=== PATIENT | female | born 1945 | race African-American/Black ===

== ENCOUNTER 2019-08-28 15:27 | Emergency (ER) | payer MEDICARE, OTHER ==
[~2019-08-28] VITALS: Ht 172.7 cm; Wt 100.0 kg
[2019-08-28 20:29] VITALS: BP 103/56
== END 2019-08-28 21:14 | disposition home or self-care (01) ==
LOC: ER 15:27
DX: R07.81 Pleurodynia (principal); E11.9 Type 2 diabetes mellitus without complications; W01.0XXA Fall on same level from slipping, tripping and stumbling without subsequent striking against object, initial encounter; Y93.89 Activity, other specified; Y92.89 Other specified places as the place of occurrence of the external cause; Y99.8 Other external cause status
CPT/HCPCS: 71101; 99283

== ENCOUNTER 2022-06-27 09:29 | Emergency (ER) | payer OTHER ==
[~2022-06-27] VITALS: Ht 175.3 cm; Wt 101.0 kg
[2022-06-27] MEDS ORDERED: ACET-2708 PO (11:52)
[2022-06-27] MEDS ORDERED: BO1 TP (11:52)
[2022-06-27] MEDS ORDERED: DOXY-326 PO (11:52)
[2022-06-27 12:32] VITALS: BP 126/75
== END 2022-06-27 12:33 | disposition home or self-care (01) ==
LOC: ER 09:29
DX: L98.418 Non-pressure chronic ulcer of buttock with other specified severity (principal); L03.317 Cellulitis of buttock; E11.65 Type 2 diabetes mellitus with hyperglycemia
CPT/HCPCS: 82962; 99283

== ENCOUNTER 2022-07-01 08:10 | Emergency (ER) | payer OTHER ==
[~2022-07-01] VITALS: Ht 175.3 cm; Wt 100.0 kg
[~2022-07-01 08:10] MED LIST: ACET-2708 PO; BO1 TP; DOXY-326 PO
[2022-07-01 08:23] VITALS: BP 142/82
== END 2022-07-01 09:09 | disposition home or self-care (01) ==
LOC: ER 08:10
DX: L98.419 Non-pressure chronic ulcer of buttock with unspecified severity (principal)
CPT/HCPCS: 82962; 99281

== ENCOUNTER 2022-08-06 06:42 | Emergency (ER) | payer OTHER ==
[~2022-08-06] VITALS: Ht 172.7 cm; Wt 105.0 kg
[2022-08-06 11:36] VITALS: BP 136/83
== END 2022-08-06 11:37 | disposition home or self-care (01) ==
LOC: ER 06:42
DX: B34.9 Viral infection, unspecified (principal); E11.9 Type 2 diabetes mellitus without complications; E89.0 Postprocedural hypothyroidism; Z20.822 Contact with and (suspected) exposure to COVID-19
CPT/HCPCS: 87426; 87804; 99283; C9803

== ENCOUNTER 2022-11-12 14:46 | Emergency (ER) | payer OTHER ==
[~2022-11-12] VITALS: Ht 175.3 cm; Wt 100.0 kg
[~2022-11-12 14:46] MED LIST changes: -DOXY-326 PO; +DOXY-456 PO
[2022-11-12 14:58] VITALS: BP 132/79
[2022-11-12] MEDS ORDERED: P20 MT (16:47)
== END 2022-11-12 16:58 | disposition home or self-care (01) ==
LOC: ER 14:46
DX: M54.2 Cervicalgia (principal); R21 Rash and other nonspecific skin eruption; E11.9 Type 2 diabetes mellitus without complications
CPT/HCPCS: 99281

== ENCOUNTER 2023-05-24 07:25 | Emergency (ER) | payer OTHER ==
[~2023-05-24] VITALS: Ht 175.3 cm; Wt 100.0 kg
[~2023-05-24 07:25] MED LIST changes: +P20 MT
[2023-05-24 07:34] VITALS: O2SAT 99
[2023-05-24] MEDS ORDERED: SULF1TAB48 MT (09:00)
[2023-05-24 09:06] VITALS: BP 137/86; PULSE 77; RESP 18; TEMP 98.7
== END 2023-05-24 09:08 | disposition home or self-care (01) ==
LOC: ER 08:24
DX: L73.9 Follicular disorder, unspecified (principal); R22.0 Localized swelling, mass and lump, head
CPT/HCPCS: 99283

== ENCOUNTER 2023-11-16 12:42 | Emergency (ER) | payer OTHER ==
[~2023-11-16] VITALS: Ht 175.3 cm; Wt 91.0 kg
[~2023-11-16 12:42] MED LIST changes: +SULF1TAB48 MT
[2023-11-16 12:51] VITALS: TEMP 97.9; O2SAT 99
[2023-11-16] MEDS ORDERED: IBUP-2029 MT (15:04)
[2023-11-16] MEDS ORDERED: METH-653 MT (15:04)
[2023-11-16] MEDS: KETOROLAC 30MG/ML VIAL IM ONE (15:41)
[2023-11-16] MEDS: METHOCARBAMOL 500MG TABLET PO ONE (15:47)
[2023-11-16 15:54] VITALS: BP 128/77; PULSE 80; RESP 12
== END 2023-11-16 15:54 | disposition home or self-care (01) ==
LOC: ER 12:42
DX: S33.5XXA Sprain of ligaments of lumbar spine, initial encounter (principal); E11.9 Type 2 diabetes mellitus without complications; Z79.899 Other long term (current) drug therapy; V49.49XA Driver injured in collision with other motor vehicles in traffic accident, initial encounter; Y93.89 Activity, other specified; Y92.89 Other specified places as the place of occurrence of the external cause; Y99.8 Other external cause status
CPT/HCPCS: 99284; 72100; 73562; 96372; J1885

== ENCOUNTER 2024-01-24 12:31 | Emergency (ER) | payer OTHER ==
[~2024-01-24] VITALS: Ht 170.2 cm; Wt 83.0 kg
[~2024-01-24 12:31] MED LIST changes: +IBUP-2029 MT; +METH-653 MT
[2024-01-24 12:34] VITALS: TEMP 98; O2SAT 96
[2024-01-24] MEDS ORDERED: KETOROLAC 60MG/2ML VIAL IM ONE (16:00)
[2024-01-24 16:16] LABS: EOSINOPHILS % 1.1 % (0.0-5.0); HEMATOCRIT. 41.9 % (36.0-48.0); HEMOGLOBIN. 14.7 g/dL (12.0-16.0); LYMPHOCYTES % 40.1 % (20.0-50.0); MEAN CORPUSCULAR HEMOGLOBIN 32.5 pg (28.0-32.0); MEAN CORPUSCULAR HGB CONC 35.1 g/dL (31.0-37.0); MEAN CORPUSCULAR VOLUME 92.6 fL (81.0-99.0); MEAN PLATELET VOLUME 7.5 fl (7.4-10.4); MONOCYTES % 5.2 % (2.0-8.0); NEUTROPHILS % 52.6 % (40.0-76.0); PLATELET 299 x1000/uL (130-400); RED BLOOD CELL COUNT 4.52 mill/uL (4.2-5.4); RED CELL DISTRIBUTION WIDTH 12.4 % (11.6-14.6); WHITE BLOOD COUNT 7.1 x1000/uL (4.5-11.0)
[2024-01-24 16:22] LABS: CHLORIDE 108 mEq/L (98-107); POTASSIUM 3.6 mEq/L (3.5-5.1); SODIUM 142 mEq/L (136-145)
[2024-01-24 16:23] LABS: CALCIUM 10.6 mg/dL (8.7-10.4); CARBON DIOXIDE 28 mEq/L (21-32)
[2024-01-24 16:28] LABS: CREATININE 0.8 mg/dL (0.6-1.0); GLUCOSE 131 mg/dL (70-105); UREA NITROGEN BLOOD 7 mg/dL (9-23)
[2024-01-24 16:30] VITALS: BP 150/81; PULSE 60; RESP 18
[2024-01-24] MEDS: KETOROLAC 30MG/ML VIAL IM NR (16:30)
== END 2024-01-24 18:22 | disposition home or self-care (01) ==
LOC: ER 12:31
DX: M25.561 Pain in right knee (principal); E11.9 Type 2 diabetes mellitus without complications
CPT/HCPCS: 99284; 80048; 85025; 36415; 73560; 73590; 96372; J1885

== ENCOUNTER 2024-05-05 12:34 | Emergency (ER) | payer OTHER ==
[~2024-05-05] VITALS: Ht 175.3 cm; Wt 91.0 kg
[~2024-05-05 12:34] MED LIST changes: -DOXY-456 PO; +DOXY100C74 PO
[2024-05-05 12:47] VITALS: O2SAT 97
[2024-05-05] MEDS: IBUPROFEN 600MG TABLET PO STA (14:37)
[2024-05-05] MEDS ORDERED: NAPR-681 PO (15:07)
[2024-05-05 15:15] VITALS: BP 113/72; PULSE 82; RESP 16; TEMP 36.83628; O2SAT 97
== END 2024-05-05 15:27 | disposition home or self-care (01) ==
LOC: ER 13:24
DX: M25.512 Pain in left shoulder (principal); M79.601 Pain in right arm; R10.9 Unspecified abdominal pain; E11.9 Type 2 diabetes mellitus without complications; Z79.899 Other long term (current) drug therapy; V49.9XXA Car occupant (driver) (passenger) injured in unspecified traffic accident, initial encounter; Y93.89 Activity, other specified; Y92.89 Other specified places as the place of occurrence of the external cause; Y99.8 Other external cause status
CPT/HCPCS: 71101; 73030; 73060; 99284

== ENCOUNTER 2024-08-26 10:56 | Emergency (ER) | payer OTHER ==
[~2024-08-26] VITALS: Ht 170.2 cm; Wt 91.0 kg
[~2024-08-26 10:56] MED LIST changes: +NAPR-681 PO
[2024-08-26 11:32] VITALS: BP 133/90; PULSE 94; RESP 18; TEMP 98.5; O2SAT 97
[2024-08-26 13:29] LABS: BASOPHILS % 0.7 % (0.0-2.0); HEMATOCRIT. 41.6 % (36.0-48.0); HEMOGLOBIN. 14.2 g/dL (12.0-16.0); MEAN CORPUSCULAR HEMOGLOBIN 31.9 pg (28.0-32.0); MEAN CORPUSCULAR HGB CONC 34.1 g/dL (31.0-37.0); MEAN CORPUSCULAR VOLUME 93.5 fL (81.0-99.0); MEAN PLATELET VOLUME 8.3 fl (7.4-10.4); MONOCYTES % 7.5 % (2.0-8.0); NEUTROPHILS % 48.8 % (40.0-76.0); PLATELET 283 x1000/uL (130-400); RED BLOOD CELL COUNT 4.44 mill/uL (4.2-5.4); WHITE BLOOD COUNT 5.9 x1000/uL (4.5-11.0)
[2024-08-26 13:32] LABS: CHLORIDE 108 mEq/L (98-107); POTASSIUM 3.6 mEq/L (3.5-5.1); SODIUM 145 mEq/L (136-145)
[2024-08-26 13:33] LABS: CALCIUM 9.8 mg/dL (8.7-10.4); CARBON DIOXIDE 26 mEq/L (21-32)
[2024-08-26 13:38] LABS: CREATININE 0.9 mg/dL (0.6-1.0); GLUCOSE 165 mg/dL (70-105); TROPONIN I HIGH SENSITIVITY 19 ng/L (3.0-34); UREA NITROGEN BLOOD 8 mg/dL (9-23)
[2024-08-26] MEDS ORDERED: IBUPROFEN 600MG TABLET PO STA (14:45)
[2024-08-26] MEDS: IBUPROFEN 600MG TABLET PO NR (17:07)
== END 2024-08-26 18:00 | disposition home or self-care (01) ==
LOC: ER 10:56
DX: S20.212A Contusion of left front wall of thorax, initial encounter (principal); I10 Essential (primary) hypertension; E11.9 Type 2 diabetes mellitus without complications; W01.0XXA Fall on same level from slipping, tripping and stumbling without subsequent striking against object, initial encounter; Y93.89 Activity, other specified; Y92.89 Other specified places as the place of occurrence of the external cause; Y99.8 Other external cause status
CPT/HCPCS: 36415; 71101; 73030; 80048; 83880; 84484; 85025; 93005; 99285

== ENCOUNTER 2025-05-04 09:14 | Emergency (ER) | payer OTHER ==
[~2025-05-04] VITALS: Ht 175.3 cm; Wt 90.0 kg
[~2025-05-04 09:14] MED LIST changes: +DOXY-461 PO; -DOXY100C74 PO
[2025-05-04 09:43] VITALS: O2SAT 100
[2025-05-04] MEDS ORDERED: BO1 TP (10:54)
[2025-05-04] MEDS ORDERED: DOXY100C5 MT (10:54)
[2025-05-04 11:08] VITALS: BP 138/77; PULSE 78; RESP 16; TEMP 36.7; O2SAT 100
== END 2025-05-04 11:09 | disposition home or self-care (01) ==
LOC: ER 09:14
DX: L03.317 Cellulitis of buttock (principal); E11.9 Type 2 diabetes mellitus without complications; Z79.899 Other long term (current) drug therapy
CPT/HCPCS: 99283